=== PATIENT | male | born 2000 | race Caucasian/White ===

== ENCOUNTER 2024-06-11 17:56 | Emergency (ER) | payer SELFPAY ==
[~2024-06-11] VITALS: Ht 180.3 cm; Wt 124.2 kg
[2024-06-12 02:57] VITALS: BP 163/86; TEMP 98.3; O2SAT 99
== END 2024-06-12 02:50 | disposition left against medical advice (07) ==
LOC: M ED 17:56
DX: Z53.21 Procedure and treatment not carried out due to patient leaving prior to being seen by health care provider (principal)

== ENCOUNTER → 2024-06-14 | Outpatient (CLI) | payer BC | LOC: M PLAIMG 06:58 | PROVIDERS: ATTEND Neuromusculoskeletal Medicine, Sports Medicine | DX: S83.512A Sprain of anterior cruciate ligament of left knee, initial encounter (principal); S83.002A Unspecified subluxation of left patella, initial encounter; S80.02XA Contusion of left knee, initial encounter; S83.32XA Tear of articular cartilage of left knee, current, initial encounter; R60.0 Localized edema ==

== ENCOUNTER 2024-08-14 06:12 | Day surgery (SDC) | payer BC ==
[~2024-08-14] VITALS: Ht 175.3 cm; Wt 119.1 kg
[2024-08-14] MEDS ORDERED: LR 1,000 ML IV SCH (06:40)
[2024-08-14] MEDS ORDERED: MIDAZOLAM INJ 2MG/2ML VIAL As Ordered ONE (06:58)
[2024-08-14] MEDS ORDERED: fentaNYL 100 MCG/2 ML INJECTION As Ordered ONE (06:58)
[2024-08-14] MEDS ORDERED: KETOROLAC 30 MG/ML 1ML VIAL As Ordered ONE (06:58)
[2024-08-14] MEDS ORDERED: ONDANSETRON 4MG 2ML VIAL As Ordered ONE (06:58)
[2024-08-14] MEDS ORDERED: ACETAMINOPHEN 1000MG/100ML IV BAG As Ordered ONE (06:59)
[2024-08-14] MEDS ORDERED: propofoL 200 MG/20 ML VIAL As Ordered ONE (07:03)
[2024-08-14] MEDS ORDERED: ROCURONIUM BROMIDE 50MG/5ML VIAL As Ordered ONE (07:05)
[2024-08-14] MEDS ORDERED: LIDOCAINE 2% 100MG/5ML SDV (FOR ANES.) As Ordered ONE (07:05)
[2024-08-14] MEDS ORDERED: SUGAMMADEX SODIUM 500 MG/5 ML VIAL (BRIDION) As Ordered ONE (07:05)
[2024-08-14] MEDS ORDERED: EPINEPHrine 1MG/ML INJ 30ML MD-VIAL As Ordered ONE (07:11)
[2024-08-14] MEDS ORDERED: BUPivacaine LIPOSOME/PF 266MG 20ML VIAL (13.3MG/ML)(EXPAREL) As Ordered ONE (07:12)
[2024-08-14] MEDS: ceFAZolin SODIUM 3 GM in DEXTROSE 5% (D5W) MINI-BAG PLU 100 ML IV ONE (07:15)
[2024-08-14] MEDS ORDERED: MIDAZOLAM INJ 2MG/2ML VIAL IV PRN (07:35)
[2024-08-14] MEDS ORDERED: fentaNYL 100 MCG/2 ML INJECTION IV PRN (07:35)
[2024-08-14] MEDS: ROPIvacaine 0.5% 30ML VIAL PN ONE (07:45)
[2024-08-14] MEDS: dexAMETHasone 10MG/1ML VIAL PRES.FREE PN ONE (07:45)
[2024-08-14] MEDS: LIDOCAINE 1% SDV 5ML VIAL PN ONE (07:45)
[2024-08-14] MEDS: ceFAZolin SODIUM 3 GM VIAL As Ordered ONE (08:05)
[2024-08-14] MEDS ORDERED: HYDROmorphone HCL 2MG/ML 1ML VIAL As Ordered ONE (08:08)
[2024-08-14] MEDS ORDERED: dexmedeTOMIDine (4MCG/ML)200MCG/50ML BTL (PRECEDEX) As Ordered ONE (08:12)
[2024-08-14] MEDS: TRANEXAMIC ACID 100 MG/ML 10ML VIAL As Ordered ONE (08:15)
[2024-08-14] MEDS: VANCOMYCIN 1000MG/20ML VIAL As Ordered ONE (09:09)
[2024-08-14] MEDS ORDERED: ONDANSETRON 4MG 2ML VIAL IV PRN (10:30)
[2024-08-14] MEDS: fentaNYL 100 MCG/2 ML INJECTION IV PRN (11:07)
[2024-08-14] MEDS: oxyCODONE 5MG TAB PO PRN (11:10)
[2024-08-14] MEDS ORDERED: SUZE50TA PO (11:20)
[2024-08-14] MEDS ORDERED: ECOT81TA5 PO (11:20)
[2024-08-14] MEDS ORDERED: HYDR4TAB PO (11:20)
[2024-08-14 12:08] VITALS: BP 144/82; TEMP 97.9; O2SAT 100
== END 2024-08-14 12:42 | disposition home or self-care (01) ==
LOC: M SDC 06:12
PROVIDERS: ATTEND Neuromusculoskeletal Medicine, Sports Medicine
DX: S83.512A Sprain of anterior cruciate ligament of left knee, initial encounter (principal); M65.162 Other infective (teno)synovitis, left knee; M22.42 Chondromalacia patellae, left knee; F12.10 Cannabis abuse, uncomplicated; F17.200 Nicotine dependence, unspecified, uncomplicated
CPT/HCPCS: 29881; 29888; 64447; C1713; J0131; J0171; J0690; J1100; J1171; J1885; J2250; J2405; J2795; J3010; J3370